=== PATIENT | female | born 1955 | race Caucasian/White ===

== ENCOUNTER 2017-01-27 15:49 | Emergency (ER) | payer MEDICAID ==
[2017-01-27 15:54] VITALS: BMI 32.0
[2017-01-27 15:57] VITALS: BP 166/84; PULSE 92; RESP 18; TEMP 99; O2SAT 100
--- NOTE | 2017-01-27 16:16 | C.PDOC ---
History Of Present Illness 61 yo female come in for evaluation of Right knee pain for past 4 days "after was walking nad have heard some crack in my knee. Since then, have pain in Right knee mostly with walking". Otherwise, pt denies fever, chills, recent illness. denies known direct trauma or injury, denies swelling, redness, warmth over right knee, denies weakness, sensory or vascular deficits, denies calf pain to Right leg. Ambulate to ED for evaluation, not in any apparent distress. Time Seen by Provider: 01/27/17 16:04 Chief Complaint (Nursing): Lower Extremity Problem/Injury History Per: Patient Past Medical History Reviewed: Historical Data, Nursing Documentation, Vital Signs Vital Signs: Last Vital Signs Temp 99.0 F 01/27/17 15:53 Pulse 92 H 01/27/17 15:53 Resp 18 01/27/17 15:53 BP 166/84 H 01/27/17 15:53 Pulse Ox 100 01/27/17 15:53 - Medical History PMH: HTN Other PMH: Obese Family History: States: No Known Family Hx - Social History Hx Alcohol Use: No Hx Substance Use: No - Immunization History Hx Tetanus Toxoid Vaccination: No Hx Influenza Vaccination: No Hx Pneumococcal Vaccination: No Review Of Systems Except As Marked, All Systems Reviewed And Found Negative. Constitutional: Negative for: Fever, Chills ENT: Negative for: Throat Pain Musculoskeletal: Positive for: Other (Right knee pain) Skin: Negative for: Rash, Lesions, Bruising Neurological: Negative for: Weakness, Numbness Physical Exam - Physical Exam Appears: Well, Non-toxic, No Acute Distress Skin: Normal Color, Warm, No Rash, No Ecchymosis Extremity: Normal ROM (Right knee without difficulty.), Tenderness (diffuse anterior Right knee tenderness, no edema, no erythema, no warmth to touch.), No Pedal Edema, No Calf Tenderness (Right ), No Deformity, No Swelling Neurological/Psych: Oriented x3, Normal Speech, Normal Motor, Normal Sensation, Normal Reflexes ED Course And Treatment O2 Sat by Pulse Oximetry: 100 Pulse Ox Interpretation: Normal - Other Rad Right knee X-Ray: Interpreted by Me, Viewed By Me Interpretation: no acute fx or dislocation Progress Note: On re-evaluation, pt is afebrile, hemodynamicaly stable. Non- toxic. Ambulatoyr in ED with stable gait. RLE: exam c/w knee arthralgia r/o sprain, r/o arthritis. FAROM, no neurovascular deficits, no erythema, no warm, no evidence of septic joint. xray review (+) mod DJD. Pt advised and ref. to f /U with PMD and Ortho in 2-3 days for re-eval. return if any new changes. Disposition Counseled Patient/Family Regarding: Studies Performed, Diagnosis, Need For Followup, Rx Given - Disposition Referrals: Teodoro Lawson MD [Staff Provider] - Disposition: HOME/ ROUTINE Disposition Time: 16:40 Condition: STABLE Additional Instructions: Take medication as prescribed Light duty to Right knee Follow up with PMD and Ortho in 2-3 days for re-evaluation. Return to ED if any worsening or new changes. Prescriptions: Prednisone [Deltasone] 40 mg PO DAILY #6 tablet traMADol [Ultram] 50 mg PO TID #7 tab Instructions: Knee Sprain (ED), Arthralgia (ED) Print Language: SINHALA - Clinical Impression Clinical Impression: Arthralgia of knee
--- NOTE | 2017-01-27 17:22 | RAD ---
PROCEDURE: Right Knee Radiographs. HISTORY: Pain. No history of recent/ related trauma provided COMPARISON: None. FINDINGS: BONES: No acute fracture. Mild degenerative change. JOINTS: Normal. No osteoarthritis. JOINT EFFUSION: None. OTHER FINDINGS: None. IMPRESSION: No acute findings related to/accounting for the clinical presentation. Concordant results with the preliminary interpretation rendered by the emergency department physician procedure.
== END 2017-01-27 16:57 | disposition home or self-care (01) ==
LOC: C.ER 15:49
DX: M25.561 Pain in right knee (principal)

== ENCOUNTER 2017-04-02 10:45 | Emergency (ER) | payer MEDICAID ==
[2017-04-02 10:46] VITALS: BMI 32.0
[2017-04-02 10:50] VITALS: BP 152/90; PULSE 88; RESP 20; TEMP 97.8; O2SAT 98
--- NOTE | 2017-04-02 11:17 | C.PDOC ---
History Of Present Illness 61 yo female c/o itching to the left armpit x 1 week. Three days ago she noticed a rash there. No new medication. No new deodorant. Does not shave the area. No fever. No SOB. No difficulty breathing or swallowing. No h/o similar symptoms. Time Seen by Provider: 04/02/17 11:05 Chief Complaint (Nursing): Abnormal Skin Integrity History Per: Patient History/Exam Limitations: no limitations Onset/Duration Of Symptoms: Days (1week) Current Symptoms Are (Timing): Still Present Location Of Injury: Left: Arm (left armpit) Quality Of Symptoms: Itching. denies: Painful, Swollen, Draining Severity: None Pain Scale Rating Of: 0 Recent travel outside of the [place]: No Additional History Per: Patient Past Medical History Reviewed: Historical Data, Nursing Documentation, Vital Signs Vital Signs: Last Vital Signs Temp 97.8 F 04/02/17 10:50 Pulse 88 04/02/17 10:50 Resp 20 04/02/17 10:50 BP 152/90 H 04/02/17 10:50 Pulse Ox 98 04/02/17 11:31 - Medical History PMH: HTN Family History: States: Unknown Family Hx - Social History Hx Alcohol Use: No Hx Substance Use: No - Immunization History Hx Tetanus Toxoid Vaccination: No Hx Influenza Vaccination: No Hx Pneumococcal Vaccination: No Review Of Systems Except As Marked, All Systems Reviewed And Found Negative. Constitutional: Negative for: Fever, Chills Respiratory: Negative for: Shortness of Breath Musculoskeletal: Negative for: Arm Pain Skin: Positive for: Rash (itchy rash to left armpit) Neurological: Negative for: Weakness, Numbness Physical Exam - Physical Exam Appears: Non-toxic, No Acute Distress Skin: Warm, Dry, Rash ((+) 6 x 8 cm well demarcated macular area of erythema ( darker at edges then border) to the left axilla) Head: Atraumatic, Normacephalic Eye(s): bilateral: Normal Inspection, PERRL, EOMI Ear(s): Bilateral: Normal Nose: Normal Oral Mucosa: Moist Tongue: No Swelling Lips: No Swelling Throat: Normal, No Erythema, No Drooling Neck: Normal ROM, Supple Chest: Symmetrical Cardiovascular: Rhythm Regular Respiratory: Normal Breath Sounds, No Accessory Muscle Use, No Wheezing, Other ( speaking in full sentences) Extremity: Normal ROM, No Tenderness, Capillary Refill (< 2 sec.), No Deformity , No Swelling Pulses: Left Radial: Normal, Right Radial: Normal Neurological/Psych: Oriented x3, Normal Speech ED Course And Treatment O2 Sat by Pulse Oximetry: 98 (RA) Pulse Ox Interpretation: Normal Progress Note: Accuchek ordered. Patient was treated with Benadryl. On re-eval, patient is resting comfortably, tolerating PO, has no shortness of breath, has no intra-oral swelling, no stridor. Patient notes that pruritus has improved. Patient was advised to avoid potential allergens, and to follow up with physician in 1-2 days. 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 Disposition - Disposition Referrals: Teodoro Lawson MD [Staff Provider] - Disposition: HOME/ ROUTINE Disposition Time: 11:16 Condition: STABLE Additional Instructions: Keep area cool and dry. Vaya a mulligan mdico o la clnica en 2-5 staley sin falta, para mas evaluacin. [place]en los medicamentos jay indicado. Volver a la cristela de emergencia en cualquier momento si los sntomas persisten o empeoran. Prescriptions: Clotrimazole/Betamethasone [Lotrisone] 15 gm EXT BID 10 Days DiphenhydrAMINE [Benadryl] 25 mg PO Q6 #20 cap Instructions: Acute Rash (ED) Forms: [facility] (Armenian) Print Language: KYRGYZ - Clinical Impression Clinical Impression: Tinea corporis - PA / TITLE SPECIALIST / Resident Statement MD/DO has reviewed & agrees with the documentation as recorded. - Scribe Statement The provider has reviewed the documentation as recorded by the Keyshawnibfreya Francis All medical record entries made by the Scribe were at my direction and personally dictated by me. I have reviewed the chart and agree that the record accurately reflects my personal performance of the history, physical exam, medical decision making, and the department course for this patient. I have also personally directed, reviewed, and agree with the discharge instructions and disposition.
== END 2017-04-02 11:27 | disposition home or self-care (01) ==
LOC: C.ER 10:45
DX: B35.4 Tinea corporis (principal)

== ENCOUNTER 2017-11-27 11:32 | Emergency (ER) | payer MEDICAID ==
[2017-11-27 11:32] VITALS: BMI 32.0
[2017-11-27 11:40] VITALS: BP 176/100; PULSE 95; RESP 20; TEMP 97.6; O2SAT 100
--- NOTE | 2017-11-27 12:09 | C.PDOC ---
History Of Present Illness 62 y/o female presents to the ED with 2 week history of rash to the left armpit. Reports having similar symptoms 6 months ago, and was treated with Lotrisone with resolution. Denies any fevers, chills, or insect bites. Time Seen by Provider: 11/27/17 11:47 Chief Complaint (Nursing): Abnormal Skin Integrity History Per: Patient History/Exam Limitations: no limitations Onset/Duration Of Symptoms: Days Current Symptoms Are (Timing): Still Present Past Medical History Reviewed: Historical Data, Nursing Documentation, Vital Signs Vital Signs: Last Vital Signs Temp 97.6 F 11/27/17 11:37 Pulse 95 H 11/27/17 11:37 Resp 20 11/27/17 11:37 BP 176/100 H 11/27/17 11:37 Pulse Ox 100 11/27/17 12:13 - Medical History PMH: HTN Family History: States: Unknown Family Hx - Social History Hx Alcohol Use: No Hx Substance Use: No - Immunization History Hx Tetanus Toxoid Vaccination: No Hx Influenza Vaccination: No Hx Pneumococcal Vaccination: No Review Of Systems Except As Marked, All Systems Reviewed And Found Negative. Skin: Positive for: Rash Physical Exam - Physical Exam Appears: Non-toxic, No Acute Distress Skin: Warm, Dry, Rash (macular erythematous rash to left axilla, with satellite lesions), No Other (cellulitic component) Neurological/Psych: Oriented x3, Normal Speech ED Course And Treatment O2 Sat by Pulse Oximetry: 100 (RA) Pulse Ox Interpretation: Normal Medical Decision Making Medical Decision Making: Impression: Tinea corpus Time: 12:06 Initial Plan: --Accucheck --Benadryl 25 mg PO Finger stick: 64 Patient given juice in the ED Patient is medically stable and will be discharged home with rx for Claritin and Lotrisone Advised pt to followup with primary doctor/the clinic in 1-2 days Disposition Counseled Patient/Family Regarding: Diagnosis, Need For Followup, Rx Given - Disposition Referrals: Teodoro Lawson MD [Staff Provider] - Disposition: HOME/ ROUTINE Disposition Time: 12:10 Condition: STABLE Additional Instructions: follow up with your doctor or medical clinic in 2 days call to make an appointment take medications as prescribed return to ER if symptoms worsens or progress Prescriptions: Clotrimazole/Betamethasone [Lotrisone] 30 gm EXT BID #1 tube Loratadine [Claritin] 10 mg PO DAILY PRN #10 tab PRN Reason: Other Instructions: Ringworm (DC) Forms: Gen Discharge Inst Venezuelan, [employer] (Venezuelan) Print Language: BULGARIAN - POA Present On Arrival: None - Clinical Impression Clinical Impression: Tinea - Scribe Statement The provider has reviewed the documentation as recorded by the Scribe (Nancie Roman) Provider Attestation: All medical record entries made by the Scribe were at my direction and personally dictated by me. I have reviewed the chart and agree that the record accurately reflects my personal performance of the history, physical exam, medical decision making, and the department course for this patient. I have also personally directed, reviewed, and agree with the discharge instructions and disposition.
== END 2017-11-27 12:32 | disposition home or self-care (01) ==
LOC: C.ER 11:32
DX: B35.4 Tinea corporis (principal)

== ENCOUNTER 2018-08-16 19:30 | Emergency (ER) | payer MEDICAID ==
[2018-08-16 19:30] VITALS: BMI 32.0
[2018-08-16 19:39] VITALS: RESP 16; O2SAT 97
[2018-08-16] MEDS ORDERED: Phenylephrine 1% Nasal Spray (15 ml) ONE (20:12)
--- NOTE | 2018-08-16 20:44 | C.PDOC ---
History Of Present Illness 63 year old female presents to the ER with a compliant left sided nose bleeding intermittently for the past week. Denies fever or injury. Chief Complaint (Nursing): ENT Problem History Per: Patient History/Exam Limitations: None Onset/Duration Of Symptoms: Days, Intermittent Episodes Current Symptoms Are (Timing): Still Present Symptoms Have Been: Episodic Past Medical History Reviewed: Historical Data, Nursing Documentation, Vital Signs Vital Signs: Last Vital Signs Temp 98.1 F 08/16/18 19:34 Pulse 81 08/16/18 19:34 Resp 16 08/16/18 19:34 BP 175/114 H 08/16/18 19:34 Pulse Ox 97 08/16/18 19:34 - Medical History PMH: HTN Family History: States: Unknown Family Hx - Social History Hx Alcohol Use: No Hx Substance Use: No - Immunization History Hx Tetanus Toxoid Vaccination: No Hx Influenza Vaccination: No Hx Pneumococcal Vaccination: No Review Of Systems Constitutional: Negative for: Fever, Chills ENT: Positive for: Other (Nose bleed) Cardiovascular: Negative for: Chest Pain, Palpitations Respiratory: Negative for: Cough, Shortness of Breath Gastrointestinal: Negative for: Nausea, Vomiting Physical Exam - Physical Exam Appears: Non-toxic Skin: Normal Color, Warm, Dry Head: Atraumatic, Normacephalic Eye(s): bilateral: Normal Inspection Ear(s): Bilateral: Normal Nose: Other (Small amount of blood to anterior nose, no actively bleeding) Oral Mucosa: Moist Throat: Normal, Other (No post nasal drip) Neck: Normal, Supple Chest: Symmetrical, No Tenderness Cardiovascular: Rhythm Regular Respiratory: Normal Breath Sounds, No Rales, No Rhonchi, No Wheezing Gastrointestinal/Abdominal: Soft, No Tenderness Neurological/Psych: Oriented x3, Normal Speech ED Course And Treatment - Laboratory Results Result Diagrams: 08/16/18 20:43 08/16/18 20:43 O2 Sat by Pulse Oximetry: 97 (room air) Pulse Ox Interpretation: Normal Progress Note: Blood work ordered. Clonidine and neosynephrine administered. Disposition Discussed With : Teodoro Lawson Doctor Will See Patient In The: Office Counseled Patient/Family Regarding: Diagnosis - Disposition Referrals: Teodoro Lawson MD [Staff Provider] - Disposition: HOME/ ROUTINE Disposition Time: 21:07 Condition: STABLE Additional Instructions: merocel to be removed by PMD in 24 to 48 hours, needs to be moisend before removal. Prescriptions: Amoxicillin [Amoxil 500 mg Cap] 500 mg PO TID #10 cap Instructions: Nosebleeds Forms: [facility] (Luxembourger) Print Language: ICELANDIC - POA Present On Arrival: None - Clinical Impression Clinical Impression: Epistaxis - Scribe Statement The provider has reviewed the documentation as recorded by the Scribe Ankit Vicente All medical record entries made by the Keyshawnibe were at my direction and personally dictated by me. I have reviewed the chart and agree that the record accurately reflects my personal performance of the history, physical exam, medical decision making, and the department course for this patient. I have also personally directed, reviewed, and agree with the discharge instructions and disposition.
[2018-08-16] MEDS ORDERED: Phenylephrine 1% Nasal Spray (15 ml) NAS STA (20:48)
[2018-08-16 20:50] LABS: BASO % 0.7 % (0.0-2.0); EOS # 0.1 K/uL (0.0-0.7); EOS % 1.6 % (0.0-4.0); HEMOGLOBIN 12.9 g/dL (11.0-16.0); LYMPH # 2.1 K/uL (1.0-4.3); LYMPH % 31.9 % (20.0-40.0); MEAN CELL VOLUME 87.2 fL (81.0-99.0); MEAN CORPUSCULAR HEMOGLOBIN 28.5 pg (27.0-31.0); MEAN CORPUSCULAR HGB CONC 32.7 g/dL (33.0-37.0); MEAN PLATELET VOLUME 9.3 fL (7.2-11.7); MONO # 0.5 K/uL (0.0-0.8); MONO % 8.3 % (0.0-10.0); NEUT # 3.7 K/uL (1.8-7.0); NEUT % 57.5 % (50.0-75.0); NRBC % 0.1 % (0.0-2.0); RBC 4.51 Mil/uL (3.80-5.20); RED CELL DISTRIBUTION WIDTH 14.2 % (11.5-14.5); WHITE BLOOD COUNT 6.5 K/uL (4.8-10.8)
[2018-08-16 20:57] LABS: INR 1.1; PROTHROMBIN TIME 11.5 SECONDS (9.7-12.2)
[2018-08-16 21:02] LABS: BLOOD UREA NITROGEN 18 mg/dL (7-17); CALCIUM 9.3 mg/dl (8.6-10.4); GFR NON-AFRICAN AMERICAN > 60
[2018-08-16 21:05] LABS: ALB/GLOB RATIO 1.2 (1.0-2.1); ALBUMIN 4.5 g/dL (3.5-5.0); ALT/SGPT 24 U/L (9-52); AST/SGOT 62 U/L (14-36)
[2018-08-16 21:10] VITALS: BP 169/98; PULSE 92; TEMP 98.3
[2018-08-16] MEDS ORDERED: Amoxicillin-Clav 500-125 mg Tab PO ONE (21:29)
== END 2018-08-16 21:28 | disposition home or self-care (01) ==
LOC: C.ER 19:30
DX: R04.0 Epistaxis (principal); I10 Essential (primary) hypertension

== ENCOUNTER 2018-08-17 12:01 | Emergency (ER) | payer MEDICAID ==
[2018-08-17 12:09] VITALS: BMI 35.0
[2018-08-17 12:11] VITALS: TEMP 98.1
--- NOTE | 2018-08-17 13:25 | C.PDOC ---
History Of Present Illness 63 year old female presents to the ED for removal of nasal packing. Reports she was seen in the ED last night for nose bleed and packing was placed in left nare. Patient was instructed to come back 24-48 later for removal of packing. Denies any pain, headache, or dizziness. Time Seen by Provider: 08/17/18 12:50 Chief Complaint (Nursing): ENT Problem History Per: Patient History/Exam Limitations: None Current Symptoms Are (Timing): Gone Past Medical History Reviewed: Historical Data, Nursing Documentation, Vital Signs Vital Signs: Last Vital Signs Temp 98.1 F 08/17/18 12:10 Pulse 97 H 08/17/18 12:10 Resp 17 08/17/18 12:10 BP 156/95 H 08/17/18 12:10 Pulse Ox 98 08/17/18 12:10 - Medical History PMH: HTN Other Surgeries: Hx of surgeries Family History: States: No Known Family Hx - Social History Hx Alcohol Use: No Hx Substance Use: No - Immunization History Hx Tetanus Toxoid Vaccination: No Hx Influenza Vaccination: No Hx Pneumococcal Vaccination: No Review Of Systems Except As Marked, All Systems Reviewed And Found Negative. Constitutional: Negative for: Fever, Chills Neurological: Negative for: Headache, Dizziness Physical Exam - Physical Exam Appears: Non-toxic, No Acute Distress Skin: Warm, Dry Head: Normacephalic Eye(s): bilateral: Normal Inspection Ear(s): Bilateral: Normal Nose: Other (packing noted to left nare) Oral Mucosa: Moist Neck: Supple Chest: Symmetrical Extremity: Bilateral: Atraumatic, Normal Color And Temperature, Normal ROM Neurological/Psych: Oriented x3, Normal Speech Gait: Steady ED Course And Treatment O2 Sat by Pulse Oximetry: 98 (RA) Pulse Ox Interpretation: Normal Progress Note: Packing removed from left nare. Patient tolerated procedure well. No post removal epistaxis. Advised to follow up with ENT specialist. Instructed to return to ER if symptoms worsen or new symptoms arise. Disposition - Disposition Referrals: Juve David MD [Staff Provider] - Disposition: HOME/ ROUTINE Disposition Time: 13:23 Condition: STABLE Additional Instructions: Follow up with PMD and ENT specialist within 1-2 days. Return to ED if feel worse. 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 - Scribe Statement The provider has reviewed the documentation as recorded by the Scribe Madalyn Patton All medical record entries made by the Keyshawnibfreya were at my direction and personally dictated by me. I have reviewed the chart and agree that the record accurately reflects my personal performance of the history, physical exam, medical decision making, and the department course for this patient. I have also personally directed, reviewed, and agree with the discharge instructions and disposition.
[2018-08-17 13:54] VITALS: BP 157/91; PULSE 68; RESP 18
[2018-08-17 16:28] VITALS: O2SAT 98
== END 2018-08-17 13:54 | disposition home or self-care (01) ==
LOC: C.ER 12:01
DX: R04.0 Epistaxis (principal)